=== PATIENT | female | born 1970 | race Caucasian/White ===

== ENCOUNTER 2016-08-18 12:24 | Outpatient (CLI) | payer MEDICARE | END 2016-08-18 12:25 | disposition home or self-care (01) | DX: L02.91 Cutaneous abscess, unspecified (principal) ==

== ENCOUNTER 2017-02-27 11:05 | Outpatient (CLI) | payer MEDICARE ==
[2017-02-27 20:30] LABS: HEMOGLOBIN A1C 0.7 g/dL
== END 2017-02-27 11:06 | disposition home or self-care (01) ==
LOC: LAB.N 11:05
PROVIDERS: ATTEND Nurse Practitioner Gerontology
DX: E11.9 Type 2 diabetes mellitus without complications (principal); E03.9 Hypothyroidism, unspecified
CPT/HCPCS: 36415; 83036; 84443

== ENCOUNTER 2017-11-10 10:34 | Outpatient (CLI) | payer MEDICARE ==
--- NOTE | 2017-11-10 19:46 | XRAY Report ---
THREE-VIEW RIGHT HAND: 11/10/2017 CLINICAL INDICATION: Pain. FINDINGS: AP, lateral, and oblique views of the right hand demonstrate no evidence of fracture or dislocation. Mild osteoarthritis is seen at the first carpometacarpal joint. No foreign body is seen in the soft tissues. IMPRESSION: MILD OSTEOARTHRITIS. TD: 11/10/2017 19:46
== END 2017-11-10 10:35 | disposition home or self-care (01) ==
LOC: DI.N 10:34
PROVIDERS: ATTEND Physician Assistant Medical
DX: M79.641 Pain in right hand (principal)

== ENCOUNTER 2018-01-25 08:33 | Outpatient (CLI) | payer MEDICARE ==
--- NOTE | 2018-01-25 13:23 | MRI Report ---
Procedure Date: 01/25/2018 Accession Number: [id number] / [id number] Procedure: MRI - Wrist RT W/O CPT Code: FULL RESULT: EXAM: RIGHT WRIST MRI WITHOUT CONTRAST EXAM DATE: 01/25/2018 09:57 AM. CLINICAL HISTORY: Wrist joint pain, right, fall on same level from SL. COMPARISON: Hand 3 view left 01/04/2018. TECHNIQUE: Multiplanar, multisequence T1-weighted and fluid-sensitive sequences of the wrist without contrast. Other: None. 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 Significant ulnar minus deformity and lateral sloping of the distal radial articular surface. Benign cystic structures seen in the lunate and capitate bone. Cartilage: First CMC joint and STT joint space narrowing with marginal arthrosis and cartilaginous loss. 2 cc is somewhat distorted short ulna; however, it does appear intact. Small amount of fluid is seen in the distal radioulnar joint. Ligaments: The scapholunate and lunotriquetral ligaments are intact. The visualized other intrinsic, extrinsic and collateral ligaments are unremarkable. No DISI or VISI deformities. Tendons: The extensor compartment I through and flexor tendons are unremarkable. Musculature: No edema or fatty atrophy. Other: Flexor mechanisms and flexor retinaculum have a normal appearance. The median nerve is slightly more prominent than expected, no evidence for abnormal increased T2 signal, however. No ganglion cysts. No joint effusions. The subcutaneous tissues are unremarkable. IMPRESSION: 1. Madelung's deformity. 2. TFCC is somewhat distorted but otherwise unremarkable. 3. Scapholunate, lunotriquetral ligaments appear unremarkable. 3. STT and first CMC joint moderately severe osteoarthritis. 5. Median nerve is slightly swollen but shows no increased T2 signal in the carpal tunnel, series 501 image 5. [facility] MUSCULOSKELETAL RADIOLOGY SECTION
--- NOTE | 2018-01-25 13:23 | MRI Report ---
Procedure Date: 01/25/2018 Accession Number: [id number] / [id number] Procedure: MRI - Hand RT W/O CPT Code: FULL RESULT: EXAM: RIGHT HAND MRI WITHOUT CONTRAST EXAM DATE: 01/25/2018 10:25 AM. CLINICAL HISTORY: Right hand pain, hyperextention. COMPARISON: None. TECHNIQUE: Multiplanar, multisequence T1-weighted and fluid-sensitive sequences of the hand without contrast. Other: None. FINDINGS: Bones: No fractures or subluxations. No marrow edema. No bone lesions. Cartilage: The articular cartilage is unremarkable. Ligaments: The visualized collateral ligaments are intact. Tendons: The flexor and extensor tendons are unremarkable. Small amount of fluid is seen in the tendon sheaths of the flexor mechanism just distal to the flexor retinaculum. Musculature: No edema or fatty atrophy. Other: No joint effusions. The subcutaneous tissues are unremarkable. IMPRESSION: 1. No fractures. No erosive or destructive changes. 2. Mild tenosynovitis is seen in the flexor mechanisms of the hand just distal to the flexor retinaculum. Of doubtful consequence, probably chronic. [facility] MUSCULOSKELETAL RADIOLOGY SECTION
== END 2018-01-25 08:34 | disposition home or self-care (01) ==
LOC: DI 08:33
PROVIDERS: ATTEND Nurse Practitioner Gerontology
DX: M25.531 Pain in right wrist (principal); M19.031 Primary osteoarthritis, right wrist; M79.641 Pain in right hand; M65.841 Other synovitis and tenosynovitis, right hand; I10 Essential (primary) hypertension

== ENCOUNTER 2018-05-03 15:38 | Outpatient (CLI) | payer MEDICARE ==
[2018-05-03 19:56] LABS: HEMOGLOBIN A1C 1.08 g/dL; HEMOGLOBIN A1C % 8.7 % (4.6-6.2)
== END 2018-05-03 15:39 | disposition home or self-care (01) ==
LOC: LAB.N 15:38
PROVIDERS: ATTEND Nurse Practitioner Gerontology
DX: E11.9 Type 2 diabetes mellitus without complications (principal)
CPT/HCPCS: 36415; 83036

== ENCOUNTER 2018-06-21 08:00 | Outpatient (CLI) | payer MEDICARE | END 2018-06-21 23:59 | disposition home or self-care (01) | LOC: LAB.R 08:00 | PROVIDERS: ATTEND Nurse Practitioner Gerontology | DX: R10.13 Epigastric pain (principal); K30 Functional dyspepsia | CPT/HCPCS: 83013 ==

== ENCOUNTER 2018-08-29 03:12 | Emergency (ER) | payer MEDICARE ==
[2018-08-29] MEDS ORDERED: ACETAMINOPHEN 500 MG TABLET PO STA (03:27)
[2018-08-29] MEDS ORDERED: NAPROXEN 250 MG TABLET PO STA (03:27)
--- NOTE | 2018-08-29 03:27 | ED Physician Documentation ---
PD HPI URI - Stated complaint Stated Complaint: FEVER, COUGH - Chief complaint Chief Complaint: Fever - History obtained from History obtained from: Patient - History of Present Illness Timing - onset: How many days ago (3) Timing details: Abrupt onset Severity Comments: moderate Associated symptoms: Fever, Chills, Sweats, Nasal congestion, Rhinorrhea, Dry cough. No: Ear pain, Sinus pain, Sore throat, Swollen nodes, Productive cough, Hemoptysis, Chest pain, Dyspnea, NVD, Bilateral edema, Unilateral edema Contributing factors: Sick contact Improves by: Medication Worsened by: No: Activity, Breathing, Position Similar symptoms before: Has not had sx before Recently seen: Not recently seen Review of Systems Constitutional: reports: Fever, Chills, Myalgias, Fatigue Eyes: denies: Discharge Ears: denies: Ear pain Nose: reports: Rhinorrhea / runny nose, Congestion Throat: denies: Sore throat Cardiac: denies: Chest pain / pressure Respiratory: reports: Cough. denies: Dyspnea GI: denies: Vomiting : denies: Dysuria Skin: denies: Rash Musculoskeletal: denies: Neck pain Neurologic: denies: Generalized weakness Immunocompromised: denies: Chemotherapy PD PAST MEDICAL HISTORY - Past Medical History Cardiovascular: Hypertension, High cholesterol Endocrine/Autoimmune: Type 2 diabetes Psych: Bipolar disorder - Past Surgical History Past Surgical History: No - Present Medications Home Medications: Ambulatory Orders Medication Instructions Recorded Confirmed Levothyroxine [Synthroid] 112 mcg PO DAILY 01/15/14 08/29/18 lamoTRIgine [Lamictal Odt] 100 mg PO BID 01/15/14 08/29/18 metFORMIN [Glucophage] 1,000 mg PO BID 01/15/14 08/29/18 traZODone [Desyrel] 200 mg PO QPM 01/31/15 08/29/18 busPIRone [Buspar] 30 mg PO BID 09/09/15 08/29/18 - Allergies Allergies/Adverse Reactions: Allergies Allergy/AdvReac Type Severity Reaction Status Date / Time Antihistamines - Alkylamine AdvReac Intermediate Dizziness Verified 08/29/18 03:20 - Social History Does the pt smoke?: No Smoking Status: Never smoker Does the pt drink ETOH?: No Does the pt have substance abuse?: No - Immunizations Immunizations are current?: No Immunizations: TDAP current <10years - POLST Patient has POLST: No PD ED PE NORMAL - General General: Alert and oriented X 3, No acute distress - HEENT HEENT: Atraumatic, PERRL, EOMI, Ears normal - Neck Neck: Supple, no meningeal sign - Cardiac Cardiac: RRR (Regular tachycardia) - Respiratory Respiratory: No respiratory distress, Clear bilaterally - Abdomen Abdomen: Soft, Non tender - Derm Derm: Normal color - Extremities Extremities: No deformity, No calf tenderness / cord - Neuro Neuro: Alert and oriented X 3, Normal speech - Psych Psych: Normal affect Results - Vitals Vitals: Vital Signs - 24 hr 08/29/18 08/29/18 03:16 04:27 Temperature 36.8 C Heart Rate 118 H 100 Respiratory 16 16 Rate Blood Pressure 149/98 H 142/82 H O2 Saturation 97 99 Oxygen O2 Source Room air - Labs Labs: Laboratory Tests 08/29/18 08/29/18 03:30 03:30 Urine Color YELLOW Urine Clarity CLEAR Urine pH 5.5 Ur Specific [place] 1.010 Urine Protein NEGATIVE Urine Glucose (UA) >=1000 H Urine Ketones 15 H Urine Occult Blood NEGATIVE Urine Nitrite NEGATIVE Urine Bilirubin NEGATIVE Urine Urobilinogen 0.2 (NORMAL) Ur Leukocyte Esterase NEGATIVE Ur Microscopic Review NOT INDICATED Urine Culture Comments NOT INDICATED Influenza A (Rapid) POSITIVE H Influenza B (Rapid) Negative PD MEDICAL DECISION MAKING - ED course ED course: Positive for influenza, the patient appears appropriate for discharge and ongoing outpatient management. There is no findings of sepsis or a secondary bacterial infection. The patient will follow up with primary care. I discussed warning signs and recommended returning for any worsening or any concerns. Departure - Departure Disposition: 01 Home, Self Care Clinical Impression: Influenza Condition: Good Instructions: ED Flu, ED Influenza Ch Follow-Up: Leslie Valenzuela EMBOSSING MACHINE TENDER [Primary Care Provider] - Within 1 week Comments: Please return to the ED for worsening symptoms or any concerns
[2018-08-29 03:48] LABS: BILIRUBIN,URINE NEGATIVE (NEGATIVE); GLUCOSE, URINE (UA) >=1000 mg/dL (NEGATIVE); KETONES,URINE (UA) 15 mg/dL (NEGATIVE); LEUKOCYTE ESTERASE, URINE NEGATIVE (NEGATIVE); NITRITE,URINE NEGATIVE (NEGATIVE); OCCULT BLOOD,URINE NEGATIVE (NEGATIVE); PH,URINE 5.5 PH (5.0-7.5); PROTEIN,URINE NEGATIVE (NEGATIVE); UROBILINOGEN,URINE 0.2 (NORMAL) E.U./dL (NORMAL)
[2018-08-29 03:50] LABS: CLARITY,URINE CLEAR (CLEAR)
--- NOTE | 2018-08-29 03:54 | XRAY Report ---
Reason: cough Procedure Date: 08/29/2018 Accession Number: [id number] / [id number] Procedure: XR - Chest 2 View X-Ray CPT Code: 45333 FULL RESULT: EXAM: CHEST RADIOGRAPHY EXAM DATE: 08/29/2018 03:49 AM. CLINICAL HISTORY: Cough. COMPARISON: None. TECHNIQUE: 2 views. FINDINGS: Lungs/Pleura: No focal opacities evident. No pleural effusion. No pneumothorax. Normal volumes. Mediastinum: Heart and mediastinal contours are unremarkable. Other: None. IMPRESSION: Normal 2-view chest radiography. [facility]
[2018-08-29 04:30] VITALS: BP 142/82
== END 2018-08-29 04:38 | disposition home or self-care (01) ==
LOC: EDUNIT# → ED 03:12
DX: J11.1 Influenza due to unidentified influenza virus with other respiratory manifestations (principal); I10 Essential (primary) hypertension; E11.9 Type 2 diabetes mellitus without complications; Z79.84 Long term (current) use of oral hypoglycemic drugs
CPT/HCPCS: 71046; 81003; 87275; 87276; 99282; 99283; A9270; 81001; 87086

== ENCOUNTER 2018-09-27 06:55 | Outpatient (CLI) | payer MEDICARE | END 2018-09-27 06:56 | disposition critical access hospital (66) | LOC: EMS 06:55 | PROVIDERS: ATTEND Surgery | DX: R10.30 Lower abdominal pain, unspecified (principal) | CPT/HCPCS: A0425; A0429 ==

== ENCOUNTER 2018-09-27 07:16 | Emergency (ER) | payer MEDICARE ==
[2018-09-27] MEDS ORDERED: SODIUM CHLORIDE 0.9% 1,000 ML IV ONE ×2 (07:44→08:25)
[2018-09-27] MEDS ORDERED: ONDANSETRON 4 MG/2 ML VIAL IVP STA (07:44)
[2018-09-27] MEDS ORDERED: fentaNYL 100 MCG/2 ML VIAL IVP STA (07:44)
[2018-09-27 07:45] LABS: BASOPHILS # (AUTO) 0.1 10^3/uL (0.0-0.1); BASOPHILS % (AUTO) 1.4 %; EOSINOPHILS # (AUTO) 0.3 10^3/uL (0.0-0.7); EOSINOPHILS % (AUTO) 6.4 %; LYMPHOCYTES # (AUTO) 1.1 10^3/uL (1.5-3.5); LYMPHOCYTES % (AUTO) 21.1 %; MEAN CORPUSCULAR HEMOGLOBIN 31.5 pg (27.0-31.0); MEAN CORPUSCULAR HGB CONC 34.3 g/dL (32.0-36.0); MEAN CORPUSCULAR VOLUME 91.7 fL (81.0-99.0); MEAN PLATELET VOLUME 7.8 fL (7.9-10.8); MONOCYTES # (AUTO) 0.5 10^3/uL (0.0-1.0); NEUTROPHILS # (AUTO) 3.3 10^3/uL (1.5-6.6); NEUTROPHILS % (AUTO) 61.1 %; PLT - PLATELET COUNT 257 10^3/uL (130-450); RED BLOOD COUNT 4.11 10^6/uL (4.20-5.40); RED CELL DISTRIBUTION WIDTH 13.2 % (12.0-15.0); WHITE BLOOD COUNT 5.4 x10^3/uL (4.8-10.8)
[2018-09-27 07:50] LABS: ALBUMIN 3.6 g/dL (3.2-5.5); ALBUMIN/GLOBULIN RATIO 1.1 (1.0-2.2); BILIRUBIN,TOTAL 0.8 mg/dL (0.2-1.0); CALCIUM 8.9 mg/dL (8.5-10.3); CREATININE 0.8 mg/dL (0.4-1.0)
[2018-09-27] MEDS ORDERED: IOVERSOL 320 50 ML VIAL ONE (08:06)
[2018-09-27] MEDS ORDERED: IOVERSOL 320 100 ML VIAL IVP ONE ×2 (08:06→13:47)
[2018-09-27 08:21] LABS: HCG,QUALITATIVE BLOOD NEGATIVE
[2018-09-27] MEDS ORDERED: INSULIN REGULAR HUMAN 100 UNIT/1 ML 10 ML MDV IVP STA (08:25)
[2018-09-27 08:26] LABS: BILIRUBIN,URINE NEGATIVE (NEGATIVE); GLUCOSE, URINE (UA) >=1000 mg/dL (NEGATIVE); KETONES,URINE (UA) NEGATIVE (NEGATIVE); LEUKOCYTE ESTERASE, URINE NEGATIVE (NEGATIVE); NITRITE,URINE NEGATIVE (NEGATIVE); OCCULT BLOOD,URINE NEGATIVE (NEGATIVE); PROTEIN,URINE NEGATIVE (NEGATIVE); UROBILINOGEN,URINE 0.2 (NORMAL) E.U./dL (NORMAL)
[2018-09-27 08:30] LABS: CLARITY,URINE CLE (CLEAR)
--- NOTE | 2018-09-27 08:56 | CT Report ---
Reason: abd pain Procedure Date: 09/27/2018 Accession Number: [id number] / [id number] Procedure: CT - Abdomen/Pelvis W CPT Code: FULL RESULT: EXAM: CT ABDOMEN AND PELVIS EXAM DATE: 09/27/2018 08:39 AM. CLINICAL HISTORY: Abdominal pain. COMPARISONS: None. TECHNIQUE: Routine helical CT imaging was performed through the abdomen and pelvis. IV contrast: 90 mL of Optiray 320. Enteric contrast: No. Reconstructions: Coronal and sagittal. In accordance with CT protocol optimization, one or more of the following dose reduction techniques were utilized for this exam: automated exposure control, adjustment of mA and/or KV based on patient size, or use of iterative reconstructive technique. FINDINGS: Lung Bases: Unremarkable. Liver: Hepatomegaly and hepatic steatosis. No focal hepatic lesion. Gallbladder/Bile Ducts: Unremarkable. Spleen: Multiple hypodense lesions in the spleen, compatible with multiple splenic cysts or hemangiomas. Pancreas: Normal. Adrenal Glands: Normal. Kidneys: Normal. No masses or hydronephrosis. Peritoneal Cavity/Bowel: Normal. No free fluid, free air or adenopathy. No masses or acute inflammatory process. The appendix is well visualized and normal. Pelvic Organs: The bladder and ovaries are unremarkable. There are fundal uterine fibroids, measuring 2.6 and 5.2 cm in diameter. The larger uterine fibroid demonstrates central low attenuation, most consistent with necrosis. Vasculature: No aneurysms or other significant abnormality. Bones: No significant abnormality. Other: No ventral hernia. IMPRESSION: 1. Multiple uterine fibroids, the largest measuring 5.2 cm in diameter and demonstrating central necrosis. 2. Hepatomegaly and hepatic steatosis. 3. Multiple hypodense lesions in the spleen, most compatible with splenic cysts or hemangiomas. 4. Normal appendix. 5. No acute inflammatory process in the abdomen or pelvis. [facility]
--- NOTE | 2018-09-27 09:35 | ED Physician Documentation ---
PD HPI ABD PAIN - Stated complaint Stated Complaint: ABD PX - Chief complaint Chief Complaint: Abd Pain - Additional information Additional information: 48-year-old female presents the emergency department with lower abdominal pain which started this morning. The patient's pain is in the lower midline. There is no radiation of the symptoms. No triggering factors. The pain is reported as a dull ache. No reports of vaginal bleeding or discharge. No vomiting or diarrhea. Symptoms are described as moderate. No attempts at symptom management Review of Systems Constitutional: denies: Fever, Myalgias, Fatigue Ears: denies: Ear pain Nose: denies: Congestion Throat: denies: Sore throat Cardiac: denies: Chest pain / pressure Respiratory: denies: Dyspnea GI: reports: Abdominal Pain. denies: Vomiting, Diarrhea : denies: Dysuria Skin: denies: Rash Musculoskeletal: denies: Neck pain Neurologic: denies: Generalized weakness Immunocompromised: denies: Chemotherapy PD PAST MEDICAL HISTORY - Past Medical History Past Medical History: Yes Cardiovascular: Hypertension, High cholesterol Endocrine/Autoimmune: Type 2 diabetes HEENT: Chronic vision loss Psych: Bipolar disorder Other Past Medical History: Pt is blind - Past Surgical History Past Surgical History: No - Present Medications Home Medications: Ambulatory Orders Medication Instructions Recorded Confirmed Levothyroxine [Synthroid] 112 mcg PO DAILY 01/15/14 08/29/18 lamoTRIgine [Lamictal Odt] 100 mg PO BID 01/15/14 08/29/18 metFORMIN [Glucophage] 1,000 mg PO BID 01/15/14 08/29/18 traZODone [Desyrel] 200 mg PO QPM 01/31/15 08/29/18 busPIRone [Buspar] 30 mg PO BID 09/09/15 08/29/18 Hydrocodone/Acetaminophen [[place] 1 each PO Q6HR PRN #10 tablet 09/27/18 5-325 Tablet] Ondansetron Odt [Zofran] 4 mg TL Q6H PRN #30 tablet 09/27/18 - Allergies Allergies/Adverse Reactions: Allergies Allergy/AdvReac Type Severity Reaction Status Date / Time Antihistamines - Alkylamine AdvReac Intermediate Dizziness Verified 08/29/18 03:20 diphenhydramine AdvReac Unknown Verified 09/27/18 07:29 [From Benadryl] - Social History Does the pt smoke?: No Smoking Status: Never smoker Does the pt drink ETOH?: No Does the pt have substance abuse?: No - Immunizations Immunizations are current?: No Immunizations: TDAP current <10years - POLST Patient has POLST: No PD ED PE NORMAL - General General: Alert and oriented X 3, No acute distress - HEENT HEENT: Atraumatic - Neck Neck: Supple, no meningeal sign - Cardiac Cardiac: RRR, Strong equal pulses - Respiratory Respiratory: No respiratory distress, Clear bilaterally - Abdomen Abdomen: Soft, Non distended. No: Non tender (The patient has lower abdominal tenderness more centrally located, there is no rebound or peritoneal signs) - Derm Derm: Normal color - Extremities Extremities: No deformity - Neuro Neuro: Alert and oriented X 3, Normal speech - Psych Psych: Normal affect Results - Vitals Vitals: Vital Signs - 24 hr 09/27/18 09/27/18 09/27/18 07:16 08:37 10:15 Temperature 36.4 C L Heart Rate 94 86 78 Respiratory 16 14 18 Rate Blood Pressure 176/100 H 162/89 H 137/78 H O2 Saturation 97 98 99 Oxygen O2 Source Room air - Labs Labs: Laboratory Tests 09/27/18 09/27/18 09/27/18 07:30 07:30 07:30 WBC 5.4 RBC 4.11 L Hgb 13.0 Hct 37.7 MCV 91.7 MCH 31.5 H MCHC 34.3 RDW 13.2 Plt Count 257 MPV 7.8 L Neut # (Auto) 3.3 Lymph # (Auto) 1.1 L Collier # (Auto) 0.5 Eos # (Auto) 0.3 Baso # (Auto) 0.1 Absolute Nucleated RBC 0.00 Nucleated RBC % 0.0 Sodium 134 L Potassium 3.9 Chloride 101 Carbon Dioxide 20 L Anion Gap 13.0 BUN 15 Creatinine 0.8 Estimated GFR (MDRD) 77 L Glucose 482 H Calcium 8.9 Total Bilirubin 0.8 AST 146 H ALT 184 H Alkaline Phosphatase 137 H Total Protein 7.0 Albumin 3.6 Globulin 3.4 Albumin/Globulin Ratio 1.1 Lipase 49 Serum HCG, Qual NEGATIVE Urine Color Urine Clarity Urine pH Ur Specific [place] Urine Protein Urine Glucose (UA) Urine Ketones Urine Occult Blood Urine Nitrite Urine Bilirubin Urine Urobilinogen Ur Leukocyte Esterase Ur Microscopic Review Urine Culture Comments 09/27/18 Unknown WBC RBC Hgb Hct MCV MCH MCHC RDW Plt Count MPV Neut # (Auto) Lymph # (Auto) Collier # (Auto) Eos # (Auto) Baso # (Auto) Absolute Nucleated RBC Nucleated RBC % Sodium Potassium Chloride Carbon Dioxide Anion Gap BUN Creatinine Estimated GFR (MDRD) Glucose Calcium Total Bilirubin AST ALT Alkaline Phosphatase Total Protein Albumin Globulin Albumin/Globulin Ratio Lipase Serum HCG, Qual Urine Color YELLOW Urine Clarity [place] Urine pH 6.0 Ur Specific [place] 1.010 Urine Protein NEGATIVE Urine Glucose (UA) >=1000 H Urine Ketones NEGATIVE Urine Occult Blood NEGATIVE Urine Nitrite NEGATIVE Urine Bilirubin NEGATIVE Urine Urobilinogen 0.2 (NORMAL) Ur Leukocyte Esterase NEGATIVE Ur Microscopic Review NOT INDICATED Urine Culture Comments NOT INDICATED - Rads (name of study) CT abd/pelvis Radiology: Final report received, See rad report (1. Multiple uterine fibroids, the largest measuring 5.2 cm in diameter and demonstrating central necrosis.2. Hepatomegaly and hepatic steatosis 3. Multiple hypodense lesions in the spleen, most compatible with splenic cysts or hemangiomas. 4. Normal appendix. 5. No acute inflammatory process in the abdomen or pelvis) PD MEDICAL DECISION MAKING - ED course ED course: The findings were discussed with the on-call square cutter who agrees with the plan for further workup as an outpatient to address the uterine fibroids and does believe that these may be the etiology of the patient's pain. And reevaluation the patient is resting comfortably. I discussed with her all of the incidental findings. I recommended follow-up with gynecology for the uterine fibroids and primary care for the other incidental findings. The patient understands and agrees. I discussed warning signs and recommended returning for any worsening or any concerns Departure - Departure Disposition: 01 Home, Self Care Clinical Impression: Hepatic steatosis, Splenic lesion, Hyperglycemia, Elevated LFTs Abdominal pain Qualifiers: Abdominal location: unspecified location Qualified Code(s): R10.9 - Unspecified abdominal pain Uterine fibroid Qualifiers: Uterine leiomyoma location: unspecified location Qualified Code(s): D25.9 - Leiomyoma of uterus, unspecified Condition: Good Instructions: Abdominal Pain, NAFLD, ED Fibroids Follow-Up: Kit Porras MD [Provider Admit Priv/Credential] - (Please call to schedule an appointment ) Prescriptions: Hydrocodone/Acetaminophen [[place] 5-325 Tablet] 1 each PO Q6HR PRN #10 tablet PRN Reason: Pain Ondansetron Odt [Zofran] 4 mg TL Q6H PRN #30 tablet PRN Reason: Nausea / Vomiting Comments: Please follow-up with primary care for further investigation elevated liver function test and hepatic steatosis and abnormality seen on the spleen Please follow-up with the women's clinic for further workup and management of the uterine fibroids. Please call to schedule appointment Please return to the emergency department immediately for any worsening or concerns
[2018-09-27 10:15] VITALS: BP 137/78
== END 2018-09-27 10:15 | disposition home or self-care (01) ==
LOC: EDUNIT# → ED 07:16
DX: D25.9 Leiomyoma of uterus, unspecified (principal); K76.0 Fatty (change of) liver, not elsewhere classified; D73.89 Other diseases of spleen; R94.5 Abnormal results of liver function studies; E11.65 Type 2 diabetes mellitus with hyperglycemia; Z79.84 Long term (current) use of oral hypoglycemic drugs; I10 Essential (primary) hypertension
CPT/HCPCS: 36415; 74177; 80053; 81003; 83690; 84703; 85025; 96361; 96374; 96375; 99283; J1815; Q9967; 81001; 87086